=== PATIENT | female | born 1985 | race Two or more races ===

== ENCOUNTER 2022-04-29 15:30 | Inpatient (IN) | payer OTHER ==
[2022-04-29] MEDS: ELECTROLYTE-148 SOLN 1,000 ML IV SCH (16:00)
[2022-04-29 16:50] VITALS: BMI 37.2
[2022-04-29 17:11] LABS: BASO % 0.3 % (0-2.0); EOS % 2.4 % (0-4.5); HEMATOCRIT 29.2 % (32.4-45.2); HEMOGLOBIN 9.8 GM/dL (10.7-15.3); LYMPH % 11.7 % (8-40); MCHC 33.5 g/dl (32.0-36.0); MEAN CELL VOLUME 77.7 fl (80-96); MEAN PLT VOLUME 9.4 fl (7.5-11.1); MONO % 6.5 % (3.8-10.2); NEUT % 79.1 % (42.8-82.8); PLATELET COUNT 206 10^3/uL (134-434); RBC 3.76 M/mm3 (3.60-5.2); RDW 14.7 % (11.6-15.6); WHITE BLOOD COUNT 11.3 K/mm3 (4.0-10.0)
[2022-04-29 17:20] LABS: INR 0.93 (0.83-1.09); PROTHROMBIN TIME (PATIENT) 10.7 SEC (9.7-13.0)
[2022-04-29 17:31] LABS: CALCIUM 8.7 mg/dL (8.5-10.1)
[2022-04-29 17:32] LABS: BLOOD UREA NITROGEN 9.5 mg/dL (7-18)
[2022-04-29 17:35] LABS: CREATININE 0.5 mg/dL (0.55-1.3)
[2022-04-29] MEDS ORDERED: DINOPROSTONE 10 MG VAGINAL SUPPOSITORY VG ONE (18:10)
[2022-04-29] MEDS ORDERED: PROMETHAZINE HCL 25 MG/1 ML VIAL IVPUSH ONE (18:22)
[2022-04-29] MEDS ORDERED: BUTORPHANOL TARTRATE 2 MG/ML VIAL IVPUSH ONE (18:22)
[2022-04-30] MEDS ORDERED: PROMETHAZINE HCL 25 MG/1 ML VIAL ONE (03:55)
[2022-04-30] MEDS ORDERED: BUTORPHANOL TARTRATE 2 MG/ML VIAL ONE (03:55)
[2022-04-30] MEDS ORDERED: OXYTOCIN 30 UNITS in 0.9% NS 30 UNIT/500 ML INFUS.BAG IVPB ONE (06:46)
[2022-04-30] MEDS ORDERED: OXYTOCIN 30 UNITS in 0.9% NS 30 UNIT/500 ML INFUS.BAG IVPB SCH (07:00)
[2022-04-30] MEDS ORDERED: FENTANYL/BUPIVACAINE/NS/PF - PCEA - 50 ML DISP.SYRIN EP ONE (08:38)
[2022-04-30 08:51] LABS: BASO % 0.6 % (0-2.0); EOS % 0.2 % (0-4.5); HEMATOCRIT 31.7 % (32.4-45.2); HEMOGLOBIN 10.6 GM/dL (10.7-15.3); LYMPH % 7.1 % (8-40); MCHC 33.4 g/dl (32.0-36.0); MEAN CELL VOLUME 77.9 fl (80-96); MEAN PLT VOLUME 9.1 fl (7.5-11.1); MONO % 3.5 % (3.8-10.2); NEUT % 88.6 % (42.8-82.8); PLATELET COUNT 226 10^3/uL (134-434); RBC 4.08 M/mm3 (3.60-5.2); RDW 14.7 % (11.6-15.6); WHITE BLOOD COUNT 15.4 K/mm3 (4.0-10.0)
[2022-04-30] MEDS: FENTANYL/BUPIVACAINE/NS/PF - PCEA - 50 ML DISP.SYRIN EP SCH (09:00)
[2022-04-30] MEDS ORDERED: NALOXONE HCL 0.4 MG/ML VIAL IVPUSH PRN (09:38)
[2022-04-30] MEDS ORDERED: SUCCINYLCHOLINE CHLORIDE 200 MG/10 ML SYRINGE ONE (10:43)
[2022-04-30] MEDS ORDERED: ceFAZolin SODIUM 1 GM VIAL ONE (10:43)
[2022-04-30] MEDS ORDERED: PROPOFOL 20 ML ONE (10:43)
[2022-04-30] MEDS ORDERED: morphine SULFATE/PF 1 MG/2 ML (2cc Syringe - QUVA) ONE ×3 (11:12→11:23)
[2022-04-30] MEDS ORDERED: METHYLERGONOVINE MALEATE 0.2 MG/1 ML AMP IM PRN (11:33)
[2022-04-30] MEDS ORDERED: ACETAMINOPHEN 325 MG TABLET (FP) PO PRN (11:33)
[2022-04-30] MEDS ORDERED: morphine SULFATE/PF 1 MG/2 ML (2cc Syringe - QUVA) EP ONE (11:45)
[2022-04-30 12:03] LABS: CORD BASE EXCESS -3.2 mmol/L (0-2); CORD HCO3 23.4 mmHg (20-29); CORD PCO2 47.1 mmHg (30-78); CORD pH 7.314 (7.14-7.44)
[2022-04-30] MEDS ORDERED: ONDANSETRON 4 MG/2 ML VIAL IVPUSH PRN (12:16)
[2022-04-30] MEDS: OXYTOCIN 20 UNITS in 0.9% NS 20 UNIT/1,000 ML INFUS.BAG IV SCH (13:21)
[2022-04-30] MEDS ORDERED: OXYTOCIN 20 UNITS in 0.9% NS 20 UNIT/1,000 ML INFUS.BAG IV ONE (13:38)
[2022-04-30] MEDS: IBUPROFEN 800 MG/8 ML IJ IVPB PRN (16:13)
[2022-04-30] MEDS ORDERED: oxyCODONE HCL 5 MG TABLET PO PRN ×2 (23:33)
[2022-05-01] MEDS: OXYTOCIN 20 UNITS in 0.9% NS 20 UNIT/1,000 ML INFUS.BAG IV SCH
[2022-05-01 02:05] VITALS: RESP 18
[2022-05-01] MEDS: IBUPROFEN 800 MG/8 ML IJ IVPB PRN (04:48)
[2022-05-01] MEDS: ELECTROLYTE-148 SOLN 1,000 ML IV SCH (09:13)
[2022-05-01 09:29] LABS: BASO % 0.4 % (0-2.0); EOS % 0.3 % (0-4.5); HEMATOCRIT 27.4 % (32.4-45.2); HEMOGLOBIN 9.1 GM/dL (10.7-15.3); LYMPH % 8.4 % (8-40); MCH 26.1 pg (25.7-33.7); MCHC 33.2 g/dl (32.0-36.0); MEAN CELL VOLUME 78.5 fl (80-96); MEAN PLT VOLUME 9.4 fl (7.5-11.1); MONO % 4.4 % (3.8-10.2); NEUT % 86.5 % (42.8-82.8); PLATELET COUNT 180 10^3/uL (134-434); RDW 15.1 % (11.6-15.6); WHITE BLOOD COUNT 14.7 K/mm3 (4.0-10.0)
[2022-05-01] MEDS: FENTANYL/BUPIVACAINE/NS/PF - PCEA - 50 ML DISP.SYRIN EP SCH (09:45)
[2022-05-01] MEDS ORDERED: BISACODYL 10 MG SUPP.RECT RC PRN (11:33)
[2022-05-01] MEDS: IBUPROFEN 600 MG TABLET (FP) PO PRN (20:18)
[2022-05-01] MEDS: SIMETHICONE 80 MG TAB.CHEW (FP) PO PRN (20:18)
[2022-05-02] MEDS: SIMETHICONE 80 MG TAB.CHEW (FP) PO PRN (14:52)
[2022-05-02] MEDS: IBUPROFEN 600 MG TABLET (FP) PO PRN (14:52)
[2022-05-02 22:26] VITALS: BP 109/70; PULSE 81; TEMP 98.1
[2022-05-03 08:55] LABS: BASO % 0.2 % (0-2.0); EOS % 1.6 % (0-4.5); HEMATOCRIT 25.3 % (32.4-45.2); HEMOGLOBIN 8.8 GM/dL (10.7-15.3); LYMPH % 10.7 % (8-40); MCHC 34.9 g/dl (32.0-36.0); MEAN CELL VOLUME 77.4 fl (80-96); MEAN PLT VOLUME 8.7 fl (7.5-11.1); MONO % 4.8 % (3.8-10.2); NEUT % 82.7 % (42.8-82.8); PLATELET COUNT 217 10^3/uL (134-434); RBC 3.27 M/mm3 (3.60-5.2); RDW 14.9 % (11.6-15.6); WHITE BLOOD COUNT 11.7 K/mm3 (4.0-10.0)
== END 2022-05-03 11:15 | disposition home or self-care (01) | DRG 540 ==
LOC: JLDR 15:30 → J3W 04-30 14:00
PROVIDERS: ADMIT Family Medicine; ATTEND Family Medicine
PROC: 10D00Z1 Extraction of Products of Conception, Low, Open Approach (ICD-10-PCS; principal; 2022-04-30)
DX: O48.0 Post-term pregnancy (principal); O76 Abnormality in fetal heart rate and rhythm complicating labor and delivery; Z37.0 Single live birth; Z3A.41 41 weeks gestation of pregnancy
CPT/HCPCS: 36415; 36600; 80048; 82803; 85025; 85610; 85730; 86780; 86850; 86900; 86901; 88307-TC; C9803-CS; U0003; U0005

== ENCOUNTER 2023-08-16 01:15 | Inpatient (IN) | payer OTHER ==
[2023-08-16] MEDS ORDERED: CITRIC ACID/SODIUM CITRATE 30 ML UNIT-DOSE CUP PO ONE ×2 (02:00→03:27)
[2023-08-16] MEDS ORDERED: ELECTROLYTE-148 SOLN 500 ML IV ONE (02:00)
[2023-08-16] MEDS ORDERED: ELECTROLYTE-148 SOLN 1,000 ML IV SCH (02:30)
[2023-08-16 02:32] LABS: BASO % 0.3 % (0-2.0); EOS % 3.3 % (0-4.5); HEMOGLOBIN 10.3 GM/dL (10.7-15.3); LYMPH % 15.1 % (8-40); MCH 25.5 pg (25.7-33.7); MCHC 33.1 g/dl (32.0-36.0); MEAN CELL VOLUME 77.1 fl (80-96); MEAN PLT VOLUME 8.2 fl (7.5-11.1); MONO % 5.6 % (3.8-10.2); NEUT % 75.7 % (42.8-82.8); PLATELET COUNT 235 10^3/uL (134-434); RBC 4.02 M/mm3 (3.60-5.2); RDW 14.6 % (11.6-15.6)
[2023-08-16 02:35] VITALS: BMI 37.2
[2023-08-16 02:38] LABS: INR 1.01 (0.83-1.09); PROTHROMBIN TIME (PATIENT) 11.7 SEC (9.7-13.0)
[2023-08-16] MEDS ORDERED: ACETAMINOPHEN 325 MG TABLET (FP) PO PRN ×2 (02:39→05:31)
[2023-08-16] MEDS ORDERED: ONDANSETRON 4 MG/2 ML VIAL IVPUSH PRN (02:39)
[2023-08-16] MEDS ORDERED: IBUPROFEN 600 MG TABLET (FP) PO PRN ×2 (02:39→05:31)
[2023-08-16 02:41] LABS: ACTIVATED PTT 31.2 SECONDS (25.2-36.5)
[2023-08-16] MEDS ORDERED: OXYTOCIN 30 UNITS in 0.9% NS 30 UNIT/500 ML INFUS.BAG IVPB ONE (02:48)
[2023-08-16 02:51] LABS: POTASSIUM 3.9 mmol/L (3.5-5.1)
[2023-08-16 02:52] LABS: BLOOD UREA NITROGEN 11.4 mg/dL (7-18); CALCIUM 8.2 mg/dL (8.5-10.1)
[2023-08-16] MEDS ORDERED: FENTANYL CITRATE/PF 50 MCG/ML VIAL ONE (02:53)
[2023-08-16] MEDS ORDERED: morphine SULFATE/PF 1 MG/2 ML (2cc Syringe - QUVA) ONE (02:53)
[2023-08-16 02:56] LABS: CREATININE 0.4 mg/dL (0.55-1.3)
[2023-08-16 03:49] LABS: HIV INTERPRETATION NEGATIVE (NEGATIVE)
[2023-08-16 04:38] LABS: CORD BASE EXCESS -2.2 mmol/L (0-2); CORD HCO3 24.7 mmHg (20-29); CORD PCO2 50.5 mmHg (30-78); CORD pH 7.308 (7.14-7.44)
[2023-08-16 04:41] LABS: CORD pH 7.269 (7.14-7.44)
[2023-08-16] MEDS ORDERED: METHYLERGONOVINE MALEATE 0.2 MG/1 ML AMP IM PRN (05:31)
[2023-08-16] MEDS ORDERED: OXYTOCIN 20 UNITS in 0.9% NS 20 UNIT/1,000 ML INFUS.BAG IV ONE (06:37)
[2023-08-16] MEDS: OXYTOCIN 20 UNITS in 0.9% NS 20 UNIT/1,000 ML INFUS.BAG IV SCH ×2 (06:39→14:28)
[2023-08-16] MEDS ORDERED: ACETAMINOPHEN 1000 MG/100 ML BAG IVPB PRN (13:17)
[2023-08-16] MEDS ORDERED: IBUPROFEN 800 MG/8 ML IJ IVPB PRN (13:18)
[2023-08-16] MEDS ORDERED: oxyCODONE HCL 5 MG TABLET PO PRN (17:31)
[2023-08-16] MEDS: SIMETHICONE 80 MG TAB.CHEW (FP) PO PRN (20:39)
[2023-08-17] MEDS ORDERED: BISACODYL 10 MG SUPP.RECT RC PRN (05:31)
[2023-08-17 06:26] LABS: BASO % 0.3 % (0-2.0); EOS % 0.2 % (0-4.5); HEMATOCRIT 25.6 % (32.4-45.2); HEMOGLOBIN 8.4 GM/dL (10.7-15.3); LYMPH % 6.4 % (8-40); MCH 25.4 pg (25.7-33.7); MCHC 32.8 g/dl (32.0-36.0); MEAN CELL VOLUME 77.5 fl (80-96); MEAN PLT VOLUME 8.5 fl (7.5-11.1); MONO % 4.3 % (3.8-10.2); NEUT % 88.8 % (42.8-82.8); PLATELET COUNT 215 10^3/uL (134-434); RDW 14.7 % (11.6-15.6); WHITE BLOOD COUNT 15.5 K/mm3 (4.0-10.0)
[2023-08-17] MEDS ORDERED: DIPHTH,PERTUSS(ACELL),TET 0.5 ML DISP.SYRIN IM ONE (08:00)
[2023-08-17] MEDS: SIMETHICONE 80 MG TAB.CHEW (FP) PO PRN ×2 (10:55→16:05)
[2023-08-18] MEDS: oxyCODONE HCL 5 MG TABLET PO PRN ×2 (08:52→18:05)
[2023-08-18 23:01] VITALS: RESP 18
[2023-08-19 08:37] VITALS: BP 120/78; PULSE 76; TEMP 97.7
[2023-08-19 08:42] LABS: BASO % 0.5 % (0-2.0); EOS % 4.3 % (0-4.5); HEMATOCRIT 26.2 % (32.4-45.2); HEMOGLOBIN 8.6 GM/dL (10.7-15.3); LYMPH % 18.4 % (8-40); MCH 25.5 pg (25.7-33.7); MCHC 32.8 g/dl (32.0-36.0); MEAN CELL VOLUME 77.7 fl (80-96); MEAN PLT VOLUME 8.3 fl (7.5-11.1); MONO % 4.3 % (3.8-10.2); NEUT % 72.5 % (42.8-82.8); PLATELET COUNT 277 10^3/uL (134-434); RBC 3.38 M/mm3 (3.60-5.2); RDW 14.5 % (11.6-15.6); WHITE BLOOD COUNT 9.3 K/mm3 (4.0-10.0)
[2023-08-19] MEDS: SIMETHICONE 80 MG TAB.CHEW (FP) PO PRN (11:22)
== END 2023-08-19 19:00 | disposition home or self-care (01) | DRG 540 ==
LOC: JDEL 01:15 → JLDR 02:05 → J3W 07:15
PROVIDERS: ADMIT Family Medicine; ATTEND Family Medicine
PROC: 10D00Z1 Extraction of Products of Conception, Low, Open Approach (ICD-10-PCS; principal; 2023-08-16)
DX: O34.211 Maternal care for low transverse scar from previous cesarean delivery (principal); O77.0 Labor and delivery complicated by meconium in amniotic fluid; Z3A.39 39 weeks gestation of pregnancy; Z37.0 Single live birth
CPT/HCPCS: 36415; 36600; 80048; 82803; 85025; 85610; 85730; 86780; 86850; 86900; 86901; 87389; 88307-TC